=== PATIENT | female | born 1995 | race African-American/Black ===

== ENCOUNTER 2018-03-31 08:53 | Inpatient (IN) | payer SELFPAY ==
--- NOTE | 2018-03-31 09:16 | ED Physician Chart ---
ED Chief Complaint/HPI - Patient Information Date Seen:: 03/31/18 Time Seen:: 08:55 Chief Complaint:: Vaginal spotting since this morning. History of Present Illness:: Brought in by private auto with boyfriend Larry for the above reason. Pt is a female with LNMP 03/18/2018. Pt noticed vaginal spotting this morning associated with constant lower abdominal cramp. No fever. No N/V/D. Last BM 2 days ago that was normal in color/consistency. No hematochezia or melena. Pt attempted to get up from bed and found herself on carpeted floor c/w syncope. Pt has had mild frontal GARVIN. No neck pain. No chest pain or discomfort. No other bodily pain or discomfort. Pt is not fully cooperative; thus, H & P are limited. Allergies:: Allergies Allergy/AdvReac Type Severity Reaction Status Date / Time No Known Allergies Allergy Verified 03/31/18 09:04 Vitals:: Vital Signs - 8 hr 03/31/18 09:05 Temp 97.5 F HR 97 RR 24 BP 138/101 O2 Sat % 100 Historian:: Patient Family MD/PCP:: Unknown LMP:: 03/18/18 Review:: Nurse's Note Reviewed ED Review of Systems - Review of Systems General/Constitutional: No fever, No weight loss, No weakness, No edema, No loss of appetite Skin: No rash, No bruising Head: Headache (mild frontal headache.) Eyes: No pain, No diplopia ENT: No nasal drainage, No sore throat Neck: No neck pain, No swelling, No stiffness, No mass noted Cardio Vascular: No chest pain, No palpitations, No edema Pulmonary: No SOB, No cough, No wheezing GI: No nausea, No vomiting, No diarrhea, Pain (lower abdominal cramp) G/U: No dysuria, No frequency, No hematuria [employer]: No vaginal discharge, No abnormal vaginal bleed Musculoskeletal: No bone or joint pain Endocrine: No polyuria, No polydipsia Psychiatric: No prior psych history Hematopoietic: No bruising, No lymphadenopathy Allergic/Immuno: No urticaria, No angioedema Neurological: No focal symptoms, No weakness, No paresthesia, Headache, No confusion ED Past Medical History - Past Medical History Past Medical History: Other (?cardiomyopathy, ?chronic anemia.) Family History: HTN Social History: Non Smoker, Alcohol (occasional), No Drug Use, Single, Other ( lives with a roommate) Surgical History: None Psychiatricy History: None Medication: None Family Medical History - Family Member Mother History Unknown: Yes Other Medical History: Pt. unable to answer due to lethargy ED Physical Exam - Physical Examination General/Constitutional: Awake, Well-developed, well-nourished, Alert, No distress, Non-toxic appearing Other Gen/Cons comments:: Breathes comfortably, speaks clearly, and interacts normally. Head: Atraumatic Eyes: Lids, conjuctiva normal, PERRL, EOMI Skin: Nl inspection, No rash, No ecchymosis, Well hydrated, No lymphadenopathy ENMT: External ears, nose nl, Nasal exam nl, Lips, teeth, gums nl, Oropharynx nl Neck: Nontender, Full ROM w/o pain, No JVD, No nuchal rigidity, No mass, No stridor Respiratory: Nl effort/Exclusion, Clear to Auscultation, No Wheeze/Rhonchi/Rales Cardio Vascular: RRR, No murmur, gallop, rubs GI: No organomegaly, Normal BS's, Nondistended, No mass/bruits, No McBurney tenderness Other GI comments:: Vague diffuse tenderness at lower abdomen. No R/G. : No CVA tenderness Other comments:: Pelvic exam: deferred per pt's request because pt feels better and her vaginal bleeding has subsided. Extremities: No tenderness or effusion, Full ROM, No edema Neuro/Psych: Alert/oriented (oriented x 3), No focal deficits Misc: Normal back, No paraspinal tenderness ED Labs/Radiology/EKG Results - Lab Results Results: Laboratory Tests 03/31/18 03/31/18 03/31/18 09:30 09:32 09:32 WBC 6.8 RBC 4.30 Hgb 10.9 L Hct 33.0 L MCV 76.8 L MCH 25.3 L MCHC Differential 32.9 RDW 13.2 Plt Count 306 MPV 7.8 Neutrophils % 55.5 Lymphocytes % 28.5 Monocytes % 14.1 H Eosinophils % 1.1 Basophils % 0.8 PT 11.0 INR 1.06 PTT (Actin FS) 19.2 L Sodium Potassium Chloride Carbon Dioxide Anion Gap BUN Creatinine Est GFR ( Amer) Est GFR (Non-Af Amer) BUN/Creatinine Ratio Glucose Calcium Total Bilirubin AST ALT Alkaline Phosphatase Troponin I Total Protein Albumin Globulin Albumin/Globulin Ratio Urine Color RED Urine Clarity CLOUDY H Urine pH 5.0 Ur Specific [place] 1.025 Urine Protein >=300 Urine Glucose (UA) NEGATIVE Urine Ketones 15 H Urine Blood LARGE H Urine Nitrate POSITIVE H Urine Bilirubin NEGATIVE Urine Urobilinogen 1.0 Ur Leukocyte Esterase SMALL H Ethyl Alcohol 03/31/18 03/31/18 09:32 09:51 WBC RBC Hgb Hct MCV MCH MCHC Differential RDW Plt Count MPV Neutrophils % Lymphocytes % Monocytes % Eosinophils % Basophils % PT INR PTT (Actin FS) Sodium 134 L Potassium 3.7 Chloride 105 Carbon Dioxide 24.3 Anion Gap 8.4 BUN 13 Creatinine 0.9 Est GFR ( Amer) > 60.0 Est GFR (Non-Af Amer) > 60.0 BUN/Creatinine Ratio 14.4 Glucose 97 Calcium 9.2 Total Bilirubin 0.3 AST 21 ALT 11 Alkaline Phosphatase 72 Troponin I < 0.01 L Total Protein 6.6 Albumin 3.7 Globulin 2.9 Albumin/Globulin Ratio 1.3 Urine Color Urine Clarity Urine pH Ur Specific [place] Urine Protein Urine Glucose (UA) Urine Ketones Urine Blood Urine Nitrate Urine Bilirubin Urine Urobilinogen Ur Leukocyte Esterase Ethyl Alcohol < 10 Laboratory Last Values WBC 6.8 Th/cmm (4.8-10.8) 03/31/18 09:32 RBC 4.30 Mil/cmm (3.80-5.10) 03/31/18 09:32 Hgb 10.9 gm/dL (12-16) L 03/31/18 09:32 Hct 33.0 % (41.0-60) L 03/31/18 09:32 MCV 76.8 fl (81-100) L 03/31/18 09:32 MCH 25.3 pg (27.0-31.0) L 03/31/18 09:32 MCHC Differential 32.9 pg (28.0-36.0) 03/31/18 09:32 RDW 13.2 % (11.5-20.0) 03/31/18 09:32 Plt Count 306 Th/cmm (150-400) 03/31/18 09:32 MPV 7.8 fl 03/31/18 09:32 Neutrophils % 55.5 % (40.0-80.0) 03/31/18 09:32 Lymphocytes % 28.5 % (20.0-50.0) 03/31/18 09:32 Monocytes % 14.1 % (2.0-10.0) H 03/31/18 09:32 Eosinophils % 1.1 % (0.0-5.0) 03/31/18 09:32 Basophils % 0.8 % (0.0-2.0) 03/31/18 09:32 PT 11.0 SECONDS (9.5-11.5) 03/31/18 09:32 INR 1.06 (0.5-1.4) 03/31/18 09:32 PTT (Actin FS) 19.2 SECONDS (26.0-38.0) L 03/31/18 09:32 Sodium 134 mEq/L (136-145) L 03/31/18 09:32 Potassium 3.7 mEq/L (3.5-5.1) 03/31/18 09:32 Chloride 105 mEq/L (98-107) 03/31/18 09:32 Carbon Dioxide 24.3 mEq/L (21.0-31.0) 03/31/18 09:32 Anion Gap 8.4 (7.0-16.0) 03/31/18 09:32 BUN 13 mg/dL (7-25) 03/31/18 09:32 Creatinine 0.9 mg/dL (0.6-1.2) 03/31/18 09:32 Est GFR ( Amer) > 60.0 ml/min (>90) 03/31/18 09:32 Est GFR (Non-Af Amer) > 60.0 ml/min 03/31/18 09:32 BUN/Creatinine Ratio 14.4 03/31/18 09:32 Glucose 97 mg/dL (70-105) 03/31/18 09:32 Calcium 9.2 mg/dL (8.6-10.3) 03/31/18 09:32 Total Bilirubin 0.3 mg/dL (0.3-1.0) 03/31/18 09:32 AST 21 U/L (13-39) 03/31/18 09:32 ALT 11 U/L (7-52) 03/31/18 09:32 Alkaline Phosphatase 72 U/L (34-104) 03/31/18 09:32 Troponin I < 0.01 ng/mL (0.01-0.05) L 03/31/18 09:51 Total Protein 6.6 gm/dL (6.0-8.3) 03/31/18 09:32 Albumin 3.7 gm/dL (3.7-5.3) 03/31/18 09:32 Globulin 2.9 gm/dL 03/31/18 09:32 Albumin/Globulin Ratio 1.3 (1.0-1.8) 03/31/18 09:32 Urine Source CLEAN C 03/31/18 09:30 Urine Color RED 03/31/18 09:30 Urine Clarity CLOUDY (CLEAR) H 03/31/18 09:30 Urine pH 5.0 (4.6 - 8.0) 03/31/18 09:30 Ur Specific [place] 1.025 (1.005-1.030) 03/31/18 09:30 Urine Protein >=300 mg/dL (NEGATIVE) 03/31/18 09:30 Urine Glucose (UA) NEGATIVE mg/dL (NEGATIVE) 03/31/18 09:30 Urine Ketones 15 mg/dL (NEGATIVE) H 03/31/18 09:30 Urine Blood LARGE (NEGATIVE) H 03/31/18 09:30 Urine Nitrate POSITIVE (NEGATIVE) H 03/31/18 09:30 Urine Bilirubin NEGATIVE (NEGATIVE) 03/31/18 09:30 Urine Urobilinogen 1.0 E.U./dL (0.2 - 1.0) 03/31/18 09:30 Ur Leukocyte Esterase SMALL (NEGATIVE) H 03/31/18 09:30 Urine RBC >100 /hpf (0-5) H 03/31/18 09:30 Urine WBC 0-2 /hpf (0-5) 03/31/18 09:30 Ur Epithelial Cells OCCASIONAL /lpf (FEW) 03/31/18 09:30 Urine Bacteria FEW /hpf (NONE SEEN) 03/31/18 09:30 POC Ur Test Negative 03/31/18 10:43 Urine Opiates Screen NEGATIVE (NEGATIVE) 03/31/18 09:30 Urine Methadone Screen NEGATIVE (NEGATIVE) 05/06/18 09:30 Ur Barbiturates Screen NEGATIVE (NEGATIVE) 03/31/18 09:30 Ur Tricyclics Screen NEGATIVE (NEGATIVE) 03/31/18 09:30 Ur Phencyclidine Scrn NEGATIVE (NEGATIVE) 03/31/18 09:30 Amphetamines Screen NEGATIVE (NEGATIVE) 03/31/18 09:30 U Methamphetamines Scrn NEGATIVE (NEGATIVE) 03/31/18 09:30 U Benzodiazepines Scrn NEGATIVE (NEGATIVE) 03/31/18 09:30 U Cocaine Metab Screen NEGATIVE (NEGATIVE) 03/31/18 09:30 U Cannabinoids Screen NEGATIVE (NEGATIVE) 03/31/18 09:30 Ethyl Alcohol < 10 mg/dL (0-10) 03/31/18 09:32 Urine POC test: Negative. - Radiology Results Results: Head CT without contrast: Negative examination. Official report per Dr. Ruperto Holbrook, radiologist. PCXR: Based on my interpretation, borderline cardiomegaly with mild cephalization; otherwise, NAD. Official report is pending. Comments:: Pelvic sonogram (preliminary report): Bilateral ovarian cysts with largest 0.8 cm on the right and 2.4 cm on the left. Thickened endometrium measures 1.7 cm. 2 heterogeneous structures @ uterine fundus and cervix areas. Fluid at cul de sac area. - EKG Interpretations EKG Time:: 09:30 Rate & Rhythm: NSR with VR 89 Comments:: Inverted T waves in V3-6. Consider lateral ischemia. ED Septic Shock - . Is Septic Shock (SBP<90, OR Lactate>4 mmol\L) present?: No - <6hrs of presentation: Vital Signs: Vital Signs - 8 hr 03/31/18 09:05 Temp 97.5 F HR 97 RR 24 BP 138/101 O2 Sat % 100 ED Reassessment (Disposition) - Reassessment Reassessment:: 0945 Pt remains stable. Pain medication was offered, but pt declined and stated that her pain is tolerable. 1100 Pt continues to improve. Pt feels comfortable and is stable. Awaiting pelvic sonogram. 1350 Pelvic sonographic report just became available. EKG, radiological, sonographic, and lab findings have been reviewed with pt. Management plan has been discussed. Admitting physician is to be contacted. 1513 Dr. Salguero called back. Case was discussed with Dr. Salguero with pertinent H & P, EKG, CXR, lab findings, etc. reviewed. Pt is to be admitted to [facility] under his care. Reassessment Condition:: Improved - Diagnosis Diagnosis:: Syncope with h/o cardiomyopathy and abnormal EKG findings. Metrorrhagia with sonographic findings c/w polycystic ovarian disease. Anemia - Patient Disposition Admitted to:: Telemetry Admitting Medical Physician:: Nathanael Salguero Time:: 15:16 Condition at Disposition:: Stable, Improved
[2018-03-31 09:41] LABS: % BASOPHILS 0.8 % (0.0-2.0); % EOSINOPHILS 1.1 % (0.0-5.0); % LYMPHOCYTES 28.5 % (20.0-50.0); % MONOCYTES 14.1 % (2.0-10.0); % NEUTROPHILS 55.5 % (40.0-80.0); BASOPHILE ABSOLUTE 0.1 Th/cumm (0-0.2); EOSINOPHILE ABSOLUTE 0.1 Th/cmm (0.1-0.4); HEMOGLOBIN 10.9 gm/dL (12-16); LYMPHOCYTE ABSOLUTE 1.9 Th/cmm (1.5-3.0); MEAN CELL VOLUME 76.8 fl (81-100); MEAN CORPUSCULAR HEMOGLOBIN 25.3 pg (27.0-31.0); MEAN CORPUSCULAR HGB CONC 32.9 pg (28.0-36.0); MEAN PLATELET VOLUME 7.8 fl; NEUTROPHILE ABSOLUTE 3.7 Th/cmm (1.8-8.0); PLATELET COUNT 306 Th/cmm (150-400); RED CELL DISTRIBUTION WIDTH 13.2 % (11.5-20.0); WHITE BLOOD COUNT 6.8 Th/cmm (4.8-10.8)
[2018-03-31 09:58] LABS: INR 1.06 (0.5-1.4)
[2018-03-31 10:05] LABS: ALB/GLOB RATIO 1.3 (1.0-1.8); ALBUMIN 3.7 gm/dL (3.7-5.3); ALKALINE PHOSPHATASE 72 U/L (34-104); ANION GAP 8.4 (7.0-16.0); BILIRUBIN,TOTAL 0.3 mg/dL (0.3-1.0); BUN - UREA NITROGEN 13 mg/dL (7-25); CALCIUM SERUM 9.2 mg/dL (8.6-10.3); CARBON DIOXIDE 24.3 mEq/L (21.0-31.0); CHLORIDE 105 mEq/L (98-107); CREATININE - SERUM 0.9 mg/dL (0.6-1.2); GFR AFRICAN-AMERICAN > 60.0 ml/min (>90); GFR NON AFRICAN-AMERICAN > 60.0 ml/min; GLUCOSE 97 mg/dL (70-105); POTASSIUM SERUM 3.7 mEq/L (3.5-5.1); SGOT 21 U/L (13-39); SGPT/ALT 11 U/L (7-52); SODIUM SERUM 134 mEq/L (136-145); TOTAL PROTEIN,SERUM 6.6 gm/dL (6.0-8.3)
[2018-03-31 10:30] LABS: URINE MICROSCOPIC INDICATED? YES; URINE SOURCE CLEAN C
[2018-03-31 10:35] LABS: URINE BILIRUBIN NEGATIVE (NEGATIVE); URINE BLOOD LARGE (NEGATIVE); URINE GLUCOSE (UA) NEGATIVE (NEGATIVE); URINE KETONE 15 mg/dL (NEGATIVE); URINE LEUKOCYTE ESTERASE SMALL (NEGATIVE); URINE NITRATE POSITIVE (NEGATIVE); URINE PROTEIN >=300 mg/dL (NEGATIVE)
[2018-03-31 10:39] LABS: URINE CLARITY CLOUDY (CLEAR); URINE COLOR RED
[2018-03-31 10:40] LABS: URINE BACTERIA FEW /hpf (NONE SEEN); URINE EPITHELIAL CELLS OCCASIONAL /lpf (FEW); URINE RBC >100 /hpf (0-5); URINE WBC 0-2 /hpf (0-5)
--- NOTE | 2018-03-31 10:41 | Diagnostic Imaging Report ---
CT scan of the brain without contrast History: Headache Total DLP equals 756 CTDI equals 38.9 Axial sections were obtained from the base of the skull to the vertex. There is a normal ventricular system size. No focal parenchymal lesions are seen. No evidence of any mass effect or shift of midline structures. No extra-axial masses or abnormal fluid collections. Impression: Negative examination
[2018-03-31 11:00] LABS: AMPHETAMINE URINE NEGATIVE (NEGATIVE); BARBITURATES URINE NEGATIVE (NEGATIVE); BENZODIAZEPINES QUAL URINE NEGATIVE (NEGATIVE); CANNABINOID THC NEGATIVE (NEGATIVE); COCAINE METABOLITE QUAL URINE NEGATIVE (NEGATIVE); METHADONE URINE NEGATIVE (NEGATIVE); METHAMPHETAMINES QUAL URINE NEGATIVE (NEGATIVE); OPIATES (MORPHINE) QUAL. URINE NEGATIVE (NEGATIVE); PHENCYCLIDINE (PCP) URINE NEGATIVE (NEGATIVE); TRICYCLICS (TCA) QUAL. URINE NEGATIVE (NEGATIVE)
[2018-03-31] MEDS ORDERED: Pneumococcal Vaccine 0.5 mL Vial IM ONE (16:49)
--- NOTE | 2018-04-01 07:51 | Diagnostic Imaging Report ---
CHEST X-RAY: AP view INDICATION: pain COMPARISON: None FINDINGS: Slight increase in additional lung markings are noted. There is no focal consolidation or pleural effusions The heart is normal in size. The osseous structures demonstrate no acute abnormalities. IMPRESSION: No focal airspace consolidation identified. Slight increased interstitial lung markings, nonspecific.
--- NOTE | 2018-04-01 08:06 | Diagnostic Imaging Report ---
Ultrasound pelvis HISTORY: Vaginal bleeding. LMP 03/19/2018. Beta hCG is negative. COMPARISON: None Technique: Longitudinal and transverse sonographic sector images of the pelvis were obtained transabdominally and transvaginally. FINDINGS: The uterus measures 7.6 x 4.3 x 5.2 cm demonstrates a mildly heterogeneous echotexture. There is a heterogeneous area along the fundal portion of the uterus measuring 2.2 x 1.7 cm. There is also a heterogeneous area seen along the lower uterine/cervical region measuring 1.8 x 1.6 cm. The endometrial echo complex measures 1.7 cm. The right ovary measures 2.6 x 2.8 cm demonstrating follicular cystic changes the largest measuring 0.8 cm. The left ovary measures 3.5 x 2.8 cm demonstrating cystic changes the largest measuring 2.4 cm demonstrating internal echoes. Vascular flow to the ovaries is noted. Small amount of free fluid is noted within the pelvis. IMPRESSION: Heterogeneous and thickened endometrial echo complex measuring up to 1.7 cm. The significance of this finding should be correlated clinically. Follow-up is recommended. Heterogeneous area measuring 2.2 x 1.7 cm within the fundal portion of uterus possibly representing a fibroid. There is also additional heterogeneous area possible lesion along the lower aspect of the uterus/cervix measuring 1.8 x 1.6 and is possibly representing a fibroid. An underlying cervix lesion cannot be excluded. Clinical correlation and follow-up including gynecologic consultation should be considered for further assessment. Short-term follow-up ultrasound is also recommended. Bilateral ovarian follicular cystic changes the largest on left side measuring 2.4 cm with internal echoes which may be due to hemorrhagic or proteinaceous components. Small amount of free fluid in the pelvis.
--- NOTE | 2018-04-01 11:41 | History & Physical ---
ADMIT DATE: MEDICAL HISTORY AND PHYSICAL PATIENT IDENTIFICATION: A 22-year-old female. CHIEF COMPLAINT: "I fainted and I did have vaginal bleeding little bit yesterday in the ER. HISTORY SOURCE: Talking to the patient as well as the patient's boyfriend and ER notes. 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 She graduated 2 days ago. According to her, day before she went to bed perfectly fine. She woke up in the morning and she was ready to go to bathroom and next thing she noted that she fainted and she fell and found on the floor. According to the patient's boyfriend, he watched her. She did not hit her head. She just tumble and found her on the floor. When he noticed she was completely soaked with blood around her pelvic and leg area. According to the patient that she did have vaginal bleeding, because of that, they rushed to Emergency Room, the patient was seen by ER MD. The patient did have a pelvic ultrasound in the Emergency Room, which did reveal the patient had heterogeneous thickened endometrial echo complex measuring up to 1.7 cm, also noted to have a 2.2 x 1.7 cm heterogeneous area within fundal portion of the uterus consistent with fibroid, also noted to have heterogeneous area with possible lesion at the lower aspect of the uterus and cervix measuring 1.8 x 1.6 cm consistent with fibroid as well. Bilateral ovarian follicular cystic changes with largest one on the left side was 2.4 with internal echoes representing hemorrhagic or proteinaceous component. The patient also had an EKG, which did reveal a normal sinus rhythm with no short ID interval, with some ST-T changes representing in V4, V5 and V6. Q-wave also reported on the lead 3. CT head was also done by ER MD, which was also unremarkable. The patient was advised to be admitted in the hospital, Dr. Salguero who was covering for me. He admitted her last evening and I am seeing this patient this morning. The patient is currently eating her breakfast and anxious to go home. The patient did have 3 series of troponin, which was unremarkable, and urinalysis consistent with nitrite being positive with large amount of blood, small leukocyte esterase was also positive with cloudy appearing urine, microcytic hypochromic anemia was also diagnosed. Urine drug screen was unremarkable. PAST MEDICAL HISTORY: Unremarkable except for hypertrophic cardiomyopathy as per patient's account. MEDICATIONS AT HOME: None. ALLERGIES: None. SOCIAL HISTORY: She just graduated from bachelor's in [employer]. The patient has no smoking cigarette, alcohol or drug use. FAMILY MEDICAL HISTORY: Remarkable for diabetes, hypertension and stroke. REVIEW OF SYSTEMS: The patient currently denies any headache, blurred vision, double vision, dysphagia, odynophagia, runny nose, stuffy nose, fever, chills, cough, chest pain, shortness of breath, palpitation, dizziness, nausea, vomiting, diarrhea, dysuria, hematuria, hematochezia, melena, no seizure or syncopal episode. She stated her vaginal bleeding has stopped. PHYSICAL EXAMINATION: GENERAL: The patient is alert, awake, lying in the bed without any acute distress. VITAL SIGNS: Temperature 98.4, pulse is 72, respiratory rate is 18, blood pressure 104/68. HEENT: Normocephalic, atraumatic. Extraocular muscles are intact. Tongue was pink and coated. Poor dentition noted. No oral lesion, no exudate. No sinus tenderness. NECK: Supple, no JVD, no hepatojugular reflex. No lymphadenopathy, thyromegaly or carotid bruit. HEART: Both heart sounds are regular. I was unable to appreciate S3 or no murmur. CHEST: Lung equal in expansion, no wheezing, no crackles. ABDOMEN: Soft. No guarding, no rigidity. Bowel sounds are present. No palpable mass. EXTREMITIES: No edema, no cyanosis, no clubbing. Peripheral pulse +2. No calf tenderness noted. NEUROLOGIC: Nonfocal. AVAILABLE DIAGNOSTIC DATA: Has been reviewed. CLINICAL IMPRESSION: 1. Status post syncopal episode followed by vaginal bleeding. The patient's blood pressure reported low. The patient has a diagnosis of hypertrophic cardiomyopathy. The patient is currently completely asymptomatic, noted to have abnormal pelvic ultrasound, which needs to be addressed. The patient's symptoms probably related to orthostatic hypotension versus vasovagal, cannot rule out cardiac arrhythmia in the view of HCM. 2. Abnormal pelvic ultrasound with vaginal bleeding. PLAN: In the view of her history, the patient is admitted by Dr. Salguero. I will keep her on monitor bed. Cardiology evaluation and Neurology evaluation has been requested by him. We will await for their opinion. I will check orthostatic hypotension for now. The patient needs to increase her activity. If orthostatic hypotension is present, the patient will be hydrated and also needed to have further evaluation to be done as an outpatient. As far as abnormal pelvic ultrasound and microcytic hypochromic anemia is concerned, the patient does need to see the broom stitcher for possible PCOS considering the patient has endometrial thickening and multiple cyst on her ovaries, which I have discussed with the patient. She has understood and she will do workup to be done as an outpatient since Gynecology service is not available at [facility]. Discharge planning is based after sr. consultant evaluation. Followup lab will be done as well. Care plan is discussed with patient's RN. JOB# [id number]
--- NOTE | 2018-04-02 06:12 | Consultation ---
DATE OF CONSULTATION: 04/01/2018 NEUROLOGY CONSULTATION HISTORY OF PRESENT ILLNESS: The patient is a 22-year-old. The patient had episode of passing out. At home, she had some vaginal spotting bleeding. She was standing, she felt kind of lightheaded. The patient collapsed, came around quickly, has some speech difficulty. The patient is feeling okay at the moment. No seizures, no tongue biting, no incontinence. PAST MEDICAL HISTORY: 1. The patient with history of cardiomyopathy 2. History of anemia. SOCIAL HISTORY: She does not smoke or drink. FAMILY HISTORY: Hypertension. REVIEW OF SYSTEMS: Twelve point negative except for above. PHYSICAL EXAMINATION: VITAL SIGNS: Temperature 98.2, blood pressure 122/73, pulse is 74. NECK: Supple, no bruits. HEART: Sounds S1, S2. LUNGS: Clear. NEUROLOGIC: The patient is awake, answers questions. Speech is normal. The patient's roommate is with her. Pupils react to light. Full eye movement, no nystagmus. No facial weakness. Motor, she will lift both arms up. Reflexes 1+ to 2. INVESTIGATIONS: CT scan head negative. IMPRESSION: 1. The patient with syncope. 2. Unlikely transient ischemic attack. 3. In view of the cardiomyopathy, I am going to go ahead and do an MRI brain. Suggest to do carotid Doppler. The patient should have a full cardiological evaluation. JOB# [id number]
--- NOTE | 2018-04-02 07:24 | Consultation ---
DATE OF CONSULTATION: 04/01/[address] Grvaes. HISTORY AND PHYSICAL: This is a 22-year-old -Portuguese female patient who woke up and was trying to go bathroom and at this time, the patient collapsed, had syncopal, and the patient came to the Emergency Room. At that time, the patient was found to have lots of blood in the pelvic area. The patient has a large amount of vaginal bleed. The patient had a syncopal episode secondary to that. PAST MEDICAL HISTORY: Hypertrophic cardiomyopathy according to the patient. FAMILY HISTORY: Unremarkable. SOCIAL HISTORY: No history of smoking, alcohol abuse. ALLERGIES: No known allergies. PHYSICAL EXAMINATION: VITAL SIGNS: Blood pressure 110/70, pulse 70, respirations 20. HEAD: Normocephalic. No lumps or bumps. EYES: Pupils equal, reactive to light. Fundi show AV nicking, sclerae white, conjunctivae pink. NECK: Carotid 2+. Normal upstroke. JVD flat. Thyroid not palpable. Lymph nodes not palpable. CHEST: Shows increased AP diameter. No kyphosis, scoliosis. LUNGS: Bilateral bronchovesicular breath sounds. Occasional wheeze. No rales. HEART: PMI fifth intercostal space with lateral to midclavicular line. S1, S2. No S3, S4, soft systolic murmur. ABDOMEN: Soft. The patient has suprapubic tenderness. No rebound tenderness. Bowel sounds active. NEUROLOGIC: Unremarkable except syncopal episode. CLINICAL IMPRESSION: 1. Syncope, most likely secondary to vaginal bleed. 2. Bilateral ovarian cysts. 3. Uterine fibroid. 4. Hypertrophic cardiomyopathy. PLAN: We will get an echocardiogram to evaluate that and continue to monitor hemoglobin and hematocrit in view of vaginal bleed. JOB# [id number]
--- NOTE | 2018-04-03 17:57 | Cardiology ---
04/01/2018 The patient of is Dr. Graves. PROCEDURE: Echocardiogram. M-MODE ECHOCARDIOGRAM: Mitral valve, anterior leaflet of mitral valve shows normal excursion, EF velocity. Posterior leaflet of mitral valve shows normal excursion. Left ventricle posterior wall showed increased thickness, normal excursion. Intraventricular septum shows increased thickness, normal excursion, hypertrophy of the left ventricle, ejection fraction 60%. Left atrium normal. Aortic root shows normal dimension, normal excursion of aortic leaflets. CONCLUSION: Hypertrophy of the left ventricle, ejection fraction 60%. 2D ECHO: Long axis view showed normal sized left ventricle with hypertrophy of the left ventricle. Left atrium normal. Aortic root shows normal dimension, normal excursion of aortic leaflets. Short axis view of mitral valve normal. Short axis of aortic valve normal. Apical four chamber view showed normal sized left ventricle with hypertrophy of the left ventricle. Left atrium is normal. Right ventricular cavity, right atrium normal, no pericardial effusion. CONCLUSION: Hypertrophy of the left ventricle, ejection fraction 60%. Doppler study shows trace tricuspid regurgitation, trace pulmonary regurgitation. CONCLUSION: Trace tricuspid regurgitation, trace pulmonary regurgitation, ejection fraction 60%, hypertrophy of the left ventricle. JOB# [id number]
== END 2018-04-01 20:00 | disposition left against medical advice (07) | DRG 760 ==
LOC: EDBD 08:53 → ER 08:53 → TELE 15:30
PROVIDERS: ADMIT Internal Medicine; ATTEND Internal Medicine
DX: N93.9 Abnormal uterine and vaginal bleeding, unspecified (principal); I42.2 Other hypertrophic cardiomyopathy; R55 Syncope and collapse; N92.1 Excessive and frequent menstruation with irregular cycle; D64.9 Anemia, unspecified; N89.8 Other specified noninflammatory disorders of vagina; D25.9 Leiomyoma of uterus, unspecified; Z82.49 Family history of ischemic heart disease and other diseases of the circulatory system
CPT/HCPCS: 36415-UA; 70450-TC; 71045-TC; 76856-TC; 80053-TC; 80307; 80320-TC; 81001-TC; 81025-TC; 82948-90; 84484-TC; 85025-TC; 85610-TC; 87086-90; 93005